=== PATIENT | male | born 1955 | race Two or more races ===

== ENCOUNTER 2018-03-18 09:21 | Emergency (ER) | payer BC ==
[~2018-03-18] VITALS: Ht 177.8 cm; Wt 103.4 kg
[2018-03-18 09:44] VITALS: Ht 177.8 cm; Wt 103.4 kg
[2018-03-18 13:36] LABS: CALCIUM 9.3 mg/dL (8.5-10.1); CARBON DIOXIDE 27.7 mmol/L (21-32); CHLORIDE SERUM 105 mmol/L (98-107); GFR1 > 60 mL/min; GLUCOSE SERUM 115 mg/dL (74-106); POTASSIUM SERUM 4.2 mmol/L (3.5-5.1); SODIUM SERUM 143 mmol/L (136-145)
[2018-03-18 13:39] VITALS: BP 137/85
[2018-03-18 13:41] LABS: ALBUMIN 4.2 g/dL (3.4-5.0); ALKALINE PHOSPHATASE 77 U/L (46-116); ALT/SGPT 62 U/L (16-63); AST/SGOT 28 U/L (15-37); BILIRUBIN TOTAL 0.89 mg/dL (0.20-1.00); TOTAL PROTEIN, SERUM 7.9 g/dL (6.4-8.2)
[2018-03-18 13:47] LABS: BASOPHIL % 0.3 % (0-2); PLATELET COUNT 255 x10^3mcL (130-400); RED CELL DISTRIBUTION WIDTH 12.9 % (11.5-14.5)
== END 2018-03-18 14:25 | disposition home or self-care (01) ==
LOC: ED 09:21
PROVIDERS: Emergency Medicine
DX: R10.32 Left lower quadrant pain (principal); I10 Essential (primary) hypertension
CPT/HCPCS: 36415